=== PATIENT | male | born 1975 | race Caucasian/White ===

== ENCOUNTER 2019-12-31 07:56 | Outpatient (CLI) | payer OTHER, SELFPAY ==
[2019-12-31 08:49] LABS: Basophils Absolute Auto 0.1 K/mm3 (0.0-0.1); Basophils Percent Auto 0.8 % (0.2-1.2); Eosinophils Absolute Auto 0.9 K/mm3 (0-0.3); Eosinophils Percent Auto 8.8 % (0-4.4); Hematocrit 41.4 % (42.0-52.0); Hemoglobin 13.5 g/dL (14.0-18.0); Immature Granulocyte Absolute 0.04 K/mm3 (0.00-0.031); Immature Granulocyte Percent A 0.4 % (0-0.5); Lymphocytes Absolute Auto 2.28 K/mm3 (0.9-3.2); Lymphocytes Percent Auto 21.4 % (18.3-44.2); Mean Corpuscular HGB Conc 32.6 g/dl (32-36); Mean Corpuscular Hemoglobin 30.1 pg (26-34); Mean Corpuscular Volume 92.2 fl (80-100); Mean Platelet Volume 9.8 fl (7.4-10.4); Monocytes Absolute Auto 0.9 K/mm3 (0.1-0.6); Monocytes Percent Auto 8.8 % (2.6-8.5); Neutrophils Absolute Auto 6.4 K/mm3 (1.3-6.7); Neutrophils Percent Auto 59.8 % (45.5-73.1); Platelet Count Result 287 k/mm3 (150-375); Red Blood Count 4.49 M/mm3 (4.6-6.20); Red Cell Distribution Width 13.1 % (11.5-14.5); White Blood Count 10.7 K/mm3 (4.5-10.0)
[2019-12-31 09:00] LABS: Alanine Aminotransferase 21 U/L (4-50); Albumin Level 4.1 g/dL (3.5-5.1); Alkaline Phosphatase 97 U/L (38-126); Anion Gap 8 mmol/L (8-16); Aspartate Amino Transferase 26 U/L (17-59); Bilirubin,Total 0.4 mg/dL (0.2-1.3); Blood Urea Nitrogen 26 mg/dL (9-20); Calcium 8.7 mg/dL (8.4-10.2); Carbon Dioxide 23 mmol/L (22-30); Chloride 107 mmol/L (98-107); Estimated Glomerular Filt Rate > 60; Glucose 92 mg/dL (75-110); Potassium 4.3 mmol/L (3.4-5.0); Sodium 138 mmol/L (137-145)
[2019-12-31 09:41] LABS: Free T4 Free Thyroxine 0.93 ng/mL (0.78-2.19)
== END 2019-12-31 07:57 | disposition home or self-care (01) ==
DX: E29.1 Testicular hypofunction (principal); R53.82 Chronic fatigue, unspecified; R45.4 Irritability and anger
CPT/HCPCS: 36415; 80053; 84439; 84443; 85025

== ENCOUNTER 2020-01-07 09:34 | Outpatient (CLI) | payer OTHER, SELFPAY ==
--- NOTE | ~2020-01-07 | US_ITS ---
EXAMINATION: US scrotum doppler DATE: 01/07/2020 11:50 INDICATION: Testicular cyst TECHNIQUE: Testicular sonogram utilizing grayscale and Doppler COMPARISON: None. FINDINGS: The right testis measures 4.2 x 2.1 x 3.0 cm. The left testis measures 4.4 x 2.0 x 3.0 cm. Symmetric normal grayscale appearance to both testes. There is normal vascular flow to both testes. The right e pididymis is normal with normal vascular flow. The left epididymis is normal with normal vascular angelo w. There is no varicocele. Small to moderate sized left hydrocele. IMPRESSION: 1. Small to moderate sized left hydrocele. Normal testes and epididymides. Reviewed, dictated and finalized at location A.
== END 2020-01-07 09:35 | disposition home or self-care (01) ==
LOC: ANHIMG 09:38
DX: N44.2 Benign cyst of testis (principal); N43.3 Hydrocele, unspecified
CPT/HCPCS: 76870; 93976

== ENCOUNTER 2020-01-14 08:03 | Outpatient (CLI) | payer OTHER, SELFPAY ==
[2020-01-14 10:02] LABS: Folic Acid 10.2 ng/mL (2.76->20)
[2020-01-18 05:43] LABS: FSH 6.3 mIU/mL (1.6-8.0); LH 4.7 mIU/mL (1.5-9.3); Prolactin 7.1 ng/mL (***)
[2020-01-18 12:45] LABS: Methylmalonic Acid 155 nmol/L (87-318)
[2020-01-18 15:43] LABS: Testosterone Total 321 ng/dL (250-1100)
== END 2020-01-14 08:04 | disposition home or self-care (01) ==
DX: E29.1 Testicular hypofunction (principal); R53.82 Chronic fatigue, unspecified; G56.23 Lesion of ulnar nerve, bilateral upper limbs
CPT/HCPCS: 36415; 82607; 82746; 83001; 83002; 83921; 84146; 84402; 84403